=== PATIENT | female | born 1965 | race Caucasian/White ===

== ENCOUNTER → 2017-08-29 | Outpatient (CLI) | payer OTHER ==
[~2017-08-29] MED LIST: AGM875 PO; IBUP-1459 PO
[2017-08-29 10:05] LABS: BASO % 0.2 %; BASO ABS # 0.02 K/uL (0-0.2); EOS ABS # 0.11 K/uL (0-0.5); HEMATOCRIT 41.5 % (37-47); IG# 0.02 K/uL (0.00-0.02); LYMPH % 24.9 %; LYMPH ABS # 2.72 K/uL (1.2-3.4); MEAN CELL VOLUME 81.9 fL (80-100); MEAN CORPUSCULAR HEMOGLOBIN 27.6 pg (25-34); MEAN CORPUSCULAR HGB CONC 33.7 g/dl (32-36); MEAN PLATELET VOLUME 9.5 fL (7.4-10.4); MONO % 6.4 %; NEUT % 67.3 %; NEUT ABS # 7.34 K/uL (1.4-6.5); PLATELET COUNT 270 K/uL (130-400); RED CELL DISTRIBUTION WIDTH CV 13.7 % (11.5-14.5); RED CELL DISTRIBUTION WIDTH SD 41.2 fL (36.4-46.3); WHITE BLOOD COUNT 10.91 K/uL (4.8-10.8)
[2017-08-29 10:31] LABS: ALT/SGPT 16 U/L (12-78); BLOOD UREA NITROGEN 14 mg/dl (7-18); CALCIUM 9.4 mg/dl (8.5-10.1); CARBON DIOXIDE 28 mmol/L (21-32); CREATININE 0.88 mg/dl (0.60-1.20); GLUCOSE 95 mg/dl (70-99); POTASSIUM 3.7 mmol/L (3.5-5.1); SODIUM 135 mmol/L (136-145)
[2017-08-29 10:42] LABS: AST/SGOT 10 U/L (15-37); CHOLESTEROL 194 mg/dl (0-200); LDL CHOLESTEROL CALCULATED 113 mg/dl
== END | disposition home or self-care (01) ==
LOC: C.LAB 09:08
DX: I10 Essential (primary) hypertension (principal); E78.5 Hyperlipidemia, unspecified; R73.9 Hyperglycemia, unspecified

== ENCOUNTER → 2017-09-08 | Outpatient (CLI) | payer OTHER ==
--- NOTE | 2017-09-08 17:02 | ECHOCARDIOGRAM REPORT ---
*NOTICE TO RECEIVING CONSTITUTION PARTY AGENCY This information is strictly Confidential and protected under [place] law. [place] law prohibits you from making any further disclosure of this information unless further disclosure is expressly permitted by the written consent of the person to whom it pertains or is authorized by law. A general authorization for the release of medical or other information is not sufficient for this purpose. Hospital accepts no responsibility if the information is made available to any other person, INCLUDING THE PATIENT. Interpretation Summary * Name: CODI GARCIA Study Date: 09/08/2017 12:46 PM BP: 159/61 mmHg * Patient Location: [facility] HR: 70 * : 1965 (M/d/yyyy) Gender: Female Height: 64 in * Age: 51 yrs Ethnicity: [place] Weight: 180 lb * Ordering Physician: Salvador Cross * Referring Physician: Salvador Cross D.O. * Performed By: Betty Caballero RDCS * * Reason For Study: RV Overload * BSA: 1.9 m2 * -- Conclusions -- * 1. Normal LV size. Normal LV wall thickness. * 2. Normal LV systolic function. LVEF 60-65%. * 3. Normal RV size and function. * 4. Borderline mitral valve prolapse with trace MR. * 5. Borderline pulmonary hypertension. Estimated PASP 35-40. * 6. Compared with prior study on is 02/12/2016: No significant change Procedure Details * A complete two-dimensional transthoracic echocardiogram was performed (2D, M-mode, Doppler and color flow Doppler). Left Ventricle * The left ventricle is grossly normal size. * There is normal left ventricular wall thickness. * Ejection Fraction = 60-65%. * Abnormal septal motion. Right Ventricle * The right ventricle is grossly normal size. * The right ventricular systolic function is normal as assessed by tricuspid annular plane systolic excursion (TAPSE) (normal >1.5 cm). Atria * The left atrial size is normal. * Right atrial size is normal. * No ASD detected; PFO is not assessed. Mitral Valve * The mitral valve is grossly normal. * There is borderline mitral valve prolapse. * There is no mitral valve stenosis. * There is trace mitral regurgitation. Tricuspid Valve * There is no tricuspid stenosis. * There is trace tricuspid regurgitation. * Right ventricular systolic pressure is elevated at 30-40mmHg. Aortic Valve * The aortic valve opens well. * The aortic valve is trileaflet. * No hemodynamically significant valvular aortic stenosis. * There is no significant aortic regurgitation. Pulmonic Valve * The pulmonary valve is inadequately visualized, but the Doppler data is adequate for interpretation. * Pulmonic stenosis is absent. * Trace pulmonic valvular regurgitation. Great Vessels * The aortic root and proximal ascending aorta are normal sized. Pericardium/Pleural * There is no pericardial effusion. Great Vessels * IVC < 2.1, <50% change with respiration. Est RA 8 mmHg. MMode 2D Measurements and Calculations IVSd 0.87 cm IVSs 1.0 cm LVIDd 3.8 cm LVIDs 2.6 cm LVPWd 1.1 cm LVPWs 1.8 cm IVS/LVPW 0.76 FS 32.5 % EDV(Teich) 61.4 ml ESV(Teich) 23.6 ml EF(Teich) 61.6 % EDV(cubed) 54.2 ml ESV(cubed) 16.7 ml EF(cubed) 69.2 % % IVS thick 20.4 % % LVPW thick 57.6 % LV mass(C)d 117.7 grams LV mass(C)dI 62.9 grams/m\S\2 LV mass(C)s 118.2 grams LV mass(C)sI 63.2 grams/m\S\2 SV(Teich) 37.8 ml SI(Teich) 20.2 ml/m\S\2 SV(cubed) 37.5 ml SI(cubed) 20.1 ml/m\S\2 Ao root diam 2.6 cm Ao root area 5.5 cm\S\2 ACS 1.7 cm LA dimension 3.1 cm LA/Ao 1.2 LVAd ap4 24.9 cm\S\2 LVLd ap4 8.1 cm EDV(MOD-sp4) 64.9 ml EDV(sp4-el) 65.1 ml LVAs ap4 12.0 cm\S\2 LVLs ap4 6.2 cm ESV(MOD-sp4) 21.2 ml ESV(sp4-el) 19.6 ml EF(MOD-sp4) 67.3 % EF(sp4-el) 69.9 % LVAd ap2 25.3 cm\S\2 LVLd ap2 8.3 cm EDV(MOD-sp2) 68.0 ml EDV(sp2-el) 65.5 ml LVAs ap2 12.5 cm\S\2 LVLs ap2 5.8 cm ESV(MOD-sp2) 24.2 ml ESV(sp2-el) 22.8 ml EF(MOD-sp2) 64.4 % EF(sp2-el) 65.1 % LVLd %diff 2.5 % EDV(MOD-bp) 66.3 ml LVLs %diff -6.13 % ESV(MOD-bp) 23.3 ml EF(MOD-bp) 64.8 % SV(MOD-sp4) 43.7 ml SI(MOD-sp4) 23.4 ml/m\S\2 SV(MOD-sp2) 43.8 ml SI(MOD-sp2) 23.4 ml/m\S\2 SV(MOD-bp) 42.9 ml SI(MOD-bp) 23.0 ml/m\S\2 SV(sp4-el) 45.5 ml SI(sp4-el) 24.3 ml/m\S\2 SV(sp2-el) 42.6 ml SI(sp2-el) 22.8 ml/m\S\2 Doppler Measurements and Calculations MV E max dorothea 65.2 cm/sec MV A max dorothea 73.3 cm/sec MV E/A 0.89 MV dec time 0.20 sec Ao V2 max 143.5 cm/sec Ao max PG 8.2 mmHg Ao max PG (full) 2.2 mmHg LV V1 max PG 6.0 mmHg LV V1 max 122.9 cm/sec PA V2 max 180.1 cm/sec PA max PG 13.0 mmHg PI max dorothea 155.0 cm/sec PI max PG 9.6 mmHg PI dec slope 204.7 cm/sec\S\2 PI P1/2t 221.8 msec TR max dorothea 265.9 cm/sec
== END | disposition home or self-care (01) ==
LOC: C.CPL 13:35
DX: I50.810 Right heart failure, unspecified (principal)